=== PATIENT | female | born 1935 | race Caucasian/White ===

== ENCOUNTER 2020-06-28 11:23 | Emergency (ER) | payer MEDICARE ==
[2020-06-28] MEDS ORDERED: Nitroglycerin 2% Ointment 1 INCH/1 GM Packet ONE ×2 (11:45→11:46)
[2020-06-28 12:05] LABS: #Basophils 0.1 thou/uL (0.0-0.2); #Eosinphils 0.1 thou/uL (0.0-0.7); #Lymphocytes 0.9 thou/uL (1.20-3.40); #Monocytes 1.1 thou/uL (0.11-0.59); #Neutrophils 9.6 thou/uL (1.40-6.50); %Basophils 1.1 % (0.0-1.0); %Eosinophils 0.9 % (0.0-10.0); %Lymphocytes 7.9 % (21.0-51.0); %Monocytes 9.4 % (0.0-10.0); %Neutrophils 80.7 % (42.0-75.0); Hemoglobin 14.9 g/dL (12.0-16.0); Mean Corpuscular HGB CONC 31.4 g/dL (32.0-36.0); Mean Corpuscular Hemoglobin 27.7 pg (27.0-31.0); Mean Corpuscular Volume 88.2 fL (78.0-98.0); Mean Platelet Volume 5.8 fL (7.4-10.4); Platelet Count 618 thou/uL (130-400); RBC Distribution Width 13.1 % (11.5-14.5); Red Blood Cell (RBC) Count 5.38 mill/uL (4.20-5.40); White Blood Cell (WBC) Count 11.9 thou/uL (4.8-10.8)
[2020-06-28 12:19] LABS: ALT (SGPT) 22 U/L (8-55); AST (SGOT) 28 U/L (5-34); Albumin 3.6 g/dL (3.4-4.8); Alkaline Phosphatase 78 U/L (40-110); Anion Gap 16 mmol/L (10-20); BUN (Urea Nitrogen) 13 mg/dL (9.8-20.1); Bilirubin, Total 0.6 mg/dL (0.2-1.2); Calc. Creatinine Clearance 0 mL/min (70-130); Calcium 9.4 mg/dL (7.8-10.44); Carbon Dioxide 24 mmol/L (23-31); Chloride 92 mmol/L (98-107); Globulin 3.3 g/dL (2.4-3.5); Glucose 122 mg/dL (83-110); Protein, Total 6.9 g/dL (5.8-8.1); Sodium 127 mmol/L (136-145)
[2020-06-28] MEDS ORDERED: Sodium Chloride 0.9% 100 ML ONE (12:25)
[2020-06-28] MEDS ORDERED: cefTRIAXone\\ROCEPHIN 2 GM VIAL ONE (12:25)
[2020-06-28] MEDS ORDERED: Furosemide 40 MG/4 ML VIAL ONE (12:33)
[2020-06-28 12:38] LABS: INR-International Normal Ratio 1.1; PTT 37.7 sec (22.9-36.1); Prothrombin Time 14.4 sec (12.0-14.7)
[2020-06-28 12:55] LABS: D-Dimer Test Greater than 150.00 *mcg/mL (0.27-0.43)
== END 2020-06-28 13:19 | disposition short-term general hospital (02) ==
LOC: NAV ERS 11:23
DX: I16.1 Hypertensive emergency (principal); E87.1 Hypo-osmolality and hyponatremia; R09.02 Hypoxemia; R91.8 Other nonspecific abnormal finding of lung field; R06.03 Acute respiratory distress; Z87.891 Personal history of nicotine dependence
CPT/HCPCS: 71045; 80053; 83605; 83735; 83880; 84484; 85025; 85379; 85610; 85730; 93005; 94660; 94760; 96365; 96375; J0696; J1940; J3490

== ENCOUNTER 2020-07-08 19:12 | Inpatient (IN) | payer MEDICARE ==
[2020-07-08] MEDS: Ondansetron ODT 4 MG TAB PO PRN (22:19)
[2020-07-08 22:55] VITALS: BMI 42.5
[2020-07-09] MEDS: Ondansetron ODT 4 MG TAB PO PRN ×6 (02:19→21:28)
[2020-07-09 05:51] LABS: #Basophils 0.2 thou/uL (0.0-0.2); #Eosinphils 0.2 thou/uL (0.0-0.7); #Lymphocytes 0.7 thou/uL (1.20-3.40); #Monocytes 1.1 thou/uL (0.11-0.59); #Neutrophils 7.9 thou/uL (1.40-6.50); %Eosinophils 1.6 % (0.0-10.0); %Lymphocytes 7.2 % (21.0-51.0); %Monocytes 10.6 % (0.0-10.0); %Neutrophils 78.6 % (42.0-75.0); Hemoglobin 12.8 g/dL (12.0-16.0); Mean Corpuscular HGB CONC 31.9 g/dL (32.0-36.0); Mean Corpuscular Hemoglobin 28.2 pg (27.0-31.0); Mean Corpuscular Volume 88.5 fL (78.0-98.0); Mean Platelet Volume 5.7 fL (7.4-10.4); Platelet Count 504 thou/uL (130-400); RBC Distribution Width 13.4 % (11.5-14.5); Red Blood Cell (RBC) Count 4.54 mill/uL (4.20-5.40)
[2020-07-09 06:03] LABS: ALT (SGPT) 21 U/L (8-55); AST (SGOT) 27 U/L (5-34); Albumin 2.8 g/dL (3.4-4.8); Alkaline Phosphatase 59 U/L (40-110); Anion Gap 15 mmol/L (10-20); BUN (Urea Nitrogen) 20 mg/dL (9.8-20.1); Bilirubin, Total 0.3 mg/dL (0.2-1.2); Calc. Creatinine Clearance 66 mL/min (70-130); Calcium 8.5 mg/dL (7.8-10.44); Carbon Dioxide 27 mmol/L (23-31); Chloride 89 mmol/L (98-107); Globulin 2.8 g/dL (2.4-3.5); Glucose 89 mg/dL (83-110); Potassium 5.2 mmol/L (3.5-5.1); Protein, Total 5.6 g/dL (5.8-8.1); Sodium 126 mmol/L (136-145)
[2020-07-09] MEDS: Spironolactone 25 MG TAB PO SCH ×2 (08:16→16:24)
[2020-07-09] MEDS: Furosemide 40 MG TAB PO SCH (08:16)
[2020-07-09] MEDS: traMADol HCl 50 MG TAB PO PRN (10:40)
[2020-07-10] MEDS: Ondansetron ODT 4 MG TAB PO PRN ×4 (01:26→13:31)
[2020-07-10] MEDS: Furosemide 40 MG TAB PO SCH (08:48)
[2020-07-10] MEDS: Spironolactone 25 MG TAB PO SCH ×2 (08:48→16:56)
[2020-07-10] MEDS ORDERED: Promethazine HCl 25 MG/ML VIAL SLOW IVP SCH (10:45)
[2020-07-10] MEDS: traMADol HCl 50 MG TAB PO PRN (13:30)
[2020-07-10 16:26] VITALS: BP 135/84; TEMP 96
== END 2020-07-10 23:46 | disposition short-term general hospital (02) | DRG 375 ==
LOC: NAV ACUTE 19:12
PROVIDERS: ADMIT Internal Medicine; ATTEND Internal Medicine
DX: C78.6 Secondary malignant neoplasm of retroperitoneum and peritoneum (principal); Z68.41 Body mass index [BMI] 40.0-44.9, adult; E66.9 Obesity, unspecified; Z90.49 Acquired absence of other specified parts of digestive tract; C55 Malignant neoplasm of uterus, part unspecified
CPT/HCPCS: 74176; 80053; 85025; J2550; J7620; Q0162